=== PATIENT | male | born 1955 | race Caucasian/White ===

== ENCOUNTER 2018-12-25 06:32 | Day surgery (SDC) | payer OTHER ==
[2018-12-24 09:44] VITALS: BMI 37.7
[2018-12-25] MEDS ORDERED: BUPIVACAINE HCL/PF 0.5% (5MG/ML) 10 ML VIAL ONE (07:30)
[2018-12-25] MEDS ORDERED: LIDOCAINE HCL 1%, 10 MG/ML (20ML VIAL) ONE (07:30)
[2018-12-25] MEDS ORDERED: PROPOFOL 20 ML ONE ×2 (07:52)
[2018-12-25] MEDS ORDERED: MIDAZOLAM HCL 2 MG/2 ML SINGLE DOSE VIAL ONE ×2 (07:52→08:31)
[2018-12-25] MEDS ORDERED: SUCCINYLCHOLINE CHLORIDE 200 MG/10 ML VIAL ONE (07:52)
[2018-12-25] MEDS ORDERED: DEXAMETHASONE SOD PHOSPHATE 4 MG/1 ML VIAL ONE (07:52)
[2018-12-25] MEDS ORDERED: ceFAZolin SODIUM 1 GM VIAL IVPB ONE (08:20)
[2018-12-25] MEDS ORDERED: ceFAZolin SODIUM 1 GM VIAL ONE ×2 (08:21)
[2018-12-25] MEDS ORDERED: LIDOCAINE HCL 1%, 10 MG/ML (50 mL VIAL) IJ ONE ×2 (08:31)
[2018-12-25] MEDS ORDERED: BUPIVACAINE HCL/PF (5 MG/ML) 30 ML VIAL IJ ONE ×2 (08:31)
--- NOTE | 2018-12-25 08:53 | OP ---
Operative Note - Note: Operative Date: 12/25/18 Pre-Operative Diagnosis: left ring finger trigger finger Operation: left ring finger trigger finger release, tendon sheath excision Post-Operative Diagnosis: Same as Pre-op Surgeon: Stevie Duarte [employer] Referee: Casey Villalba Anesthesiologist/LEASING PROPERTY MANAGER: Laura Ryder Anesthesia: Local, MAC Specimens Removed: tendon sheath Estimated Blood Loss (mls): 0 Drains, Volume Out (mls): 0 Blood Volume Replaced (mls): 0 Fluid Volume Replaced (mls): 500 Operative Report Dictated: Yes
--- NOTE | 2018-12-25 08:54 | HP ---
Satellite [facility] - Chief Complaint Chief Complaint: left ring finger pain, locking History of Present Illness: left ring finger trigger finger History Source: Patient Limitations to Obtaining History: No Limitations - Past Medical History Allergies/Adverse Reactions: Allergies Allergy/AdvReac Type Severity Reaction Status Date / Time No Known Drug Allergies Allergy Verified 12/25/18 07:10 - Current Medications Current Medications: Home Medications Medication Instructions Recorded Cinnamon Bark [Cinnamon] 2 tab PO DAILY 01/25/12 Fish Oil/Borage/Flax/Om3,6,9 1 1 each PO DAILY 01/25/12 [Marathon 3-6-9 Complex Softgel] Levothyroxine [Synthroid -] 200 mcg PO DAILY 01/25/12 Satellite Physical Exam - Physical Examination Vital Signs: Vital Signs Period Temp Pulse Resp BP Sys/Wayne Pulse Ox Last 24 Hr 98.1 F 67 18 147/78 98 General Appearance: Well Nourished ENT: Clear Lung: Clear to auscultation Heart: Regular rate & rhythm Breasts: Soft Abdomen: Soft Extremities: No edema Satellite Impression/Plan - Impression/Plan Impression: left ring finger trigger finger Operative Procedure: left ring finger trigger finger release, tendon sheath excision Date to be Performed: 12/25/18
[2018-12-25] MEDS ORDERED: ONDANSETRON 4 MG/2 ML VIAL IVPUSH PRN (09:29)
[2018-12-25] MEDS ORDERED: oxyCODONE HCL 5 MG TABLET PO PRN (09:29)
[2018-12-25] MEDS ORDERED: LACTATED RINGERS SOLUTION 1,000 ML IV SCH (09:30)
[2018-12-25 10:53] VITALS: BP 120/70; TEMP 97.8
[2018-12-25 11:12] VITALS: PULSE 76
--- NOTE | 2018-12-25 14:44 | SPEC ---
DATE OF OPERATION: 12/25/2018 PREOPERATIVE DIAGNOSIS: Left ring finger trigger finger. POSTOPERATIVE DIAGNOSIS: Left ring finger trigger finger. PROCEDURE: Left ring finger trigger finger release. SURGEON: Stevie Duarte MD MENTAL TESTER: Howard Thomas MD ANESTHESIOLOGIST: QUE Ryder ANESTHESIA: MAC anesthesia with local injection of 10 mL 0.5% Marcaine, 1% lidocaine mixed. DRAINS: None. COMPLICATIONS: None. SPECIMENS: Tendon sheath, left ring finger. BLOOD LOSS: None. BLOOD GIVEN: None. FLUID REPLACEMENT: 500 mL. INDICATIONS: This patient is a 63-year-old male with a preoperative diagnosis of a recurrent painful left ring finger trigger finger. After understanding the potential risks, complications, alternatives, and benefits of surgical versus nonsurgical treatment, the patient elected to undergo this procedure. PROCEDURE: The patient was brought to the operating room, IV was placed, IV sedation was given. One gram of intravenous Ancef given. A tourniquet was applied to the left upper arm and the left upper extremity was prepped and draped in sterile fashion. The entire case was done under 3.8 loupe magnification. A marking pen was utilized to guilherme out a longitudinal incision in an already existing skin crease at the base of the left ring finger. Then 10 mL of 0.5% Marcaine mixed with 1% Lidocaine was injected in and around the incision. The left upper extremity was elevated, exsanguinated with an Esmarch bandage and the tourniquet inflated to 250 mmHg. A No. 15 scalpel blade was utilized to cut down through the skin. Subcutaneous hemostasis was achieved with the bipolar cautery. Additional dissection was done with Littler scissors until I was able to directly visualize the A1 malinda sheath in its entirety. Self-retaining retractors were placed into the wound. A free air elevator was used to free up the tissue on the radial side, the ulnar side distally and proximally under better visualization of A1 malinda sheath. Next, using a fresh No. 15 scalpel blade, I excised the central one-third of the A1 malinda sheath and passed it off the field as specimen, tendon sheath, ring finger. I then completed the release, both distally and proximally, and brought the FDS and FDP tendons out through the wound with a Ragnell retractor. There were no abnormal points of compression. I was able to move the ring finger without the tendons bunching up at all. The area was then copiously irrigated and washed out. I then checked one more time to make sure there were no abnormal points of compression. None were seen and therefore closure was begun. One stitch using 4-0 Vicryl was used in the deep dermal layer. Skin was reapproximated with 4-0 Nylon sutures in a horizontal mattress fashion. The area was then washed and dried, covered with Xeroform gauze, sterile 4x4s, fluffs between the fingers, Webril and Coban. The tourniquet was taken down after a total tourniquet time of 18 minutes. There were no complications during the case. The patient tolerated the procedure well and was brought to the Ambulatory recovery Room in stable condition. HOWARD THOMAS M.D. [id number]
--- NOTE | 2018-12-27 18:31 | PATH ---
Surgical Pathology Report Patient Name: ANABEL SCHILLING [facility]. Rec. #: [id number] /Age/Gender: 1955 (Age: 63) / M Account: [id number] Location: [facility] SUR[facility]ICAL Taken: 12/25/2018 Received: 12/25/2018 Reported: 12/27/2018 Physicians: Amy Sparks M.D. Specimen(s) Received LEFT 4TH FINGER TENDON SHEATH Clinical History Left fourth trigger finger Final Diagnosis TENDON SHEATH, FOURTH FINGER, LEFT, TRIGGER FINGER RELEASE: BENIGN DENSE CONNECTIVE TISSUE. Electronically Signed Jeannette Palacios M.D. Gross Description Received in formalin labeled "left fourth finger tendon sheath," is a 1.0 cm in greatest dimension riley-white fibrous tissue fragment. The specimen is submitted in toto in one cassette. /12/26/201812/26/2018
== END 2018-12-25 11:14 | disposition home or self-care (01) ==
LOC: JASU-SURG 06:32
PROVIDERS: ATTEND Orthopaedic Surgery
PROC: 0LN80ZZ Release Left Hand Tendon, Open Approach (ICD-10-PCS; principal; 2018-12-25 08:00)
DX: M65.342 Trigger finger, left ring finger (principal)
CPT/HCPCS: 88304-TC